=== PATIENT | male | born 1980 | race Caucasian/White ===

== ENCOUNTER 2018-11-02 00:33 | Emergency (ER) | payer SELFPAY ==
[~2018-11-02] VITALS: Ht 177.8 cm; Wt 140.9 kg
[2018-11-02 00:47] VITALS: BP 173/94
[2018-11-02] MEDS ORDERED: AmLODIPine BESYLATE 5 MG TABLET PO ONE (01:15)
== END 2018-11-02 01:18 | disposition home or self-care (01) ==
LOC: EMS 00:35
DX: Z02.89 Encounter for other administrative examinations (principal); I10 Essential (primary) hypertension; M79.89 Other specified soft tissue disorders; E11.9 Type 2 diabetes mellitus without complications; Z86.718 Personal history of other venous thrombosis and embolism
CPT/HCPCS: 93005